=== PATIENT | female | born 1940 | race Caucasian/White ===

== ENCOUNTER 2016-12-12 10:30 | Outpatient (CLI) | payer MEDICARE, OTHER ==
[2016-12-12 11:15] LABS: eGFR (African) > 60; eGFR (Non-African) > 60
== END 2016-12-12 10:32 ==
LOC: LAB 10:30
PROVIDERS: ATTEND Family Medicine
DX: E55.9 Vitamin D deficiency, unspecified (principal); I10 Essential (primary) hypertension
CPT/HCPCS: 36415; 80053; 80061; 82306

== ENCOUNTER 2016-12-17 10:19 | Outpatient (CLI) | payer MEDICARE, OTHER | END 2016-12-17 10:20 | LOC: LAB 10:19 | PROVIDERS: ATTEND Family Medicine | DX: R73.9 Hyperglycemia, unspecified (principal) | CPT/HCPCS: 36415; 83036 ==

== ENCOUNTER 2017-03-11 10:46 | Outpatient (CLI) | payer MEDICARE, OTHER | END 2017-03-11 10:47 | LOC: LAB 10:46 | PROVIDERS: ATTEND Family Medicine | DX: R73.9 Hyperglycemia, unspecified (principal) | CPT/HCPCS: 36415; 83036 ==

== ENCOUNTER → 2017-06-20 | Outpatient (CLI) | payer MEDICARE, OTHER | LOC: LAB 11:24 | PROVIDERS: ATTEND Family Medicine | DX: E11.9 Type 2 diabetes mellitus without complications (principal) | CPT/HCPCS: 36415; 83036 ==

== ENCOUNTER 2017-09-23 09:51 | Outpatient (CLI) | payer MEDICARE, OTHER ==
[2017-09-23 11:01] LABS: eGFR (African) > 60; eGFR (Non-African) > 60
== END 2017-09-23 09:52 ==
LOC: LAB 09:51
PROVIDERS: ATTEND Family Medicine
DX: E11.9 Type 2 diabetes mellitus without complications (principal); I10 Essential (primary) hypertension
CPT/HCPCS: 36415; 80048; 83036

== ENCOUNTER 2017-10-10 08:47 | Day surgery (SDC) | payer MEDICARE, OTHER ==
[~2017-10-10 08:47] MED LIST: LACTATED RINGERS 1,000 ML IV.SOLN IV ONE; LIDOCAINE HCL/PF 2% 100 MG/5 ML VIAL IJ ONE; PROPOFOL 200 MG/20 ML VIAL IV ONE; SALINE FLUSH 10 ML DISP.SYRIN IVF ONE
--- NOTE | 2017-10-10 14:42 | Operative Note ---
SURGEON: Leif Whitman MD ANESTHESIA: MAC anesthesia. ESTIMATED BLOOD LOSS: None. COMPLICATIONS: None. PREOPERATIVE DIAGNOSIS: Screening colonoscopy. POSTOPERATIVE DIAGNOSIS: Colon polyps. PROCEDURE PERFORMED: Colonoscopy with polypectomy. INDICATIONS FOR THE PROCEDURE: This is a 76-year-old woman who presents for a screening colonoscopy. DESCRIPTION OF PROCEDURE: Patient was brought to the endoscopy suite and placed in the left lateral decubitus position. A rectal exam was performed which was normal. The colonoscope was inserted and passed to the cecum. The ileocecal valve and appendiceal orifice were identified. The prep was good. The colonoscope was retracted. There was a greater than 6-minute withdrawal time. On the ileocecal valve, there was approximately a 1 cm sessile polyp which was completely removed with a hot snare. In the rectum, there was a small sessile polyp removed with a cold snare. The colonoscope was removed. There were no other abnormalities. The patient tolerated the procedure well. FINDINGS: 1. A 1 cm sessile polyp on the ileocecal valve completely removed with a hot snare 2. A small sessile polyp in the rectum completely removed with a cold snare. DISPOSITION: We will await her pathology. cc: Dr. Rica GAMBINO
== END 2017-10-10 08:50 ==
LOC: OPSURG 08:47
PROVIDERS: ATTEND Colon & Rectal Surgery
DX: Z12.11 Encounter for screening for malignant neoplasm of colon (principal); K62.1 Rectal polyp; K63.5 Polyp of colon; D12.0 Benign neoplasm of cecum
CPT/HCPCS: J2001; J2704; J7120; 45385; S1016

== ENCOUNTER 2017-12-30 10:14 | Outpatient (CLI) | payer MEDICARE, OTHER ==
[2017-12-30 10:57] LABS: BASOPHILS % 0.4 (0.0-1.5); EOSINOPHILS % 1.6 % (0.0-6.8); MEAN CORPUSCULAR HEMOGLOBIN 25.4 pg (28.0-34.0); MEAN CORPUSCULAR VOLUME 79.5 fl (80.0-100.0); MONOCYTES % 4.1 % (0.0-11.0); NEUTROPHILS # 5.5 # k/uL (1.4-7.7)
[2017-12-30 11:08] LABS: eGFR (African) > 60; eGFR (Non-African) > 60
== END 2017-12-30 10:15 ==
LOC: LAB 10:14
PROVIDERS: ATTEND Family Medicine
DX: E11.9 Type 2 diabetes mellitus without complications (principal); R63.4 Abnormal weight loss
CPT/HCPCS: 36415; 80053; 83036; 84443; 85025

== ENCOUNTER 2018-01-01 09:22 | Outpatient (CLI) | payer MEDICARE, OTHER ==
--- NOTE | 2018-01-01 13:22 | Diagnostic Imaging Report ---
POOJA GREEN [facility] [address] [facility], [facility] [place], [place]. [address] Report Submission Date: Jan 01, 2018 11:09:56 AM TAXICAB DISPATCHER Patient Study Name: NAKUL SEYMOUR Date: Jan 01, 2018 9:51:46 AM TAXICAB DISPATCHER Modality Type: CT\SR Gender: F Description: CT ABD/PELVIS W/ CON : 42 Institution: [facility] Physician: POOJA GREEN Examination: CT Abdomen/pelvis History: CT A/P WITH CONTRAST, UNEXPLAINED WEIGHT LOSS X 1 YEAR, PT UNABLE TO RAISE LEFT ARM OUT OF F.O.V. (Hx) / UNEXPLAINED WEIGHT LOSS (DICOM Hx) Comparison exams: None available Technique: CT Abdomen/pelvis with IV protocol. Findings: Liver, spleen, pancreas, and kidneys are without gross irregularity. No abnormal enhancement. Surgical clips gallbladder fossa. Mild nodularity of the adrenal glands bilaterally. No suspicious renal calcifications or cortical irregularity. Uterus do not appear to be dilated in their course through the abdomen and pelvis. No central calcification. Abdominal aorta without aneurysm. Peripheral atherosclerotic disease. Cardiac silhouette is not enlarged. No pericardial effusion. Bowel unopacified limiting evaluation. No abnormal dilation. Stool within the large bowel limiting sensitivity. No mesenteric inflammatory changes or free fluid. Appendix is visualized and is without inflammatory changes. Scattered sigmoidal diverticula. No adjacent inflammation. Hiatal hernia. Osseous structures demonstrate degenerative changes. Curvature to the right. Lung bases demonstrate parenchymal scarring. No effusion. Impression: No abdominal mass or acute appearing inflammatory process. No suspicious renal calcifications or abnormal ureteric dilation. No abnormal bowel dilation or inflammation. Sigmoid diverticulosis. No evidence for acute diverticulitis. Large hiatal hernia. Electronically signed on Jan 01, 2018 11:09:56 AM TAXICAB DISPATCHER by: Luis Armando GAMBINO
--- NOTE | 2018-01-01 13:22 | Diagnostic Imaging Report ---
POOJA GREEN [facility] [address] [facility] [address] [place], [place]. [address] Report Submission Date: Jan 01, 2018 10:58:49 AM HOTEL MAINTENANCE ENGINEER Patient Study Name: NAKUL SEYMOUR Date: Jan 01, 2018 9:45:01 AM HOTEL MAINTENANCE ENGINEER Modality Type: CT\SR Gender: F Description: CT CHEST W/O : 41 Institution: [facility] Physician: POOJA GREEN Examination: CT chest History: CT A/P WITH CONTRAST, UNEXPLAINED WEIGHT LOSS X 1 YEAR, PT UNABLE TO RAISE LEFT ARM OUT OF F.O.V. (Hx) / UNEXPLAINED WEIGHT LOSS (DICOM Hx) Comparison exams: None available Technique: CT chest without contrast protocol Findings: Scattered parenchymal scarring. No consolidative process. 5 mm nodule right lower lung (image 69 of 137). No other suspicious nodules are spiculated lesions identified. Anterior mediastinum and carlitos are without gross mass or pathologic adenopathy: though sensitivity is reduced on a noncontrast exam. Thoracic aorta demonstrates peripheral atherosclerotic disease. No aneurysmal dilation. Cardiac silhouette not enlarged. No effusion. Lower neck structures and upper abdominal organs are without gross abnormality. Large hiatal hernia. Vertebral body ossific spurring. Curvature to the left. Impression: 5 mm noncalcified nodule right lower lung - not pathologic by CT criteria. Follow up recommended at 6 month intervals until 2 years worth of stability have been documented. Parenchymal scarring without focal consolidation or effusion. Large hiatal hernia. Electronically signed on Jan 01, 2018 10:58:49 AM HOTEL MAINTENANCE ENGINEER by: Luis Armando GAMBINO
== END 2018-01-01 09:23 ==
LOC: RAD 09:22
PROVIDERS: ATTEND Family Medicine
DX: R63.4 Abnormal weight loss (principal)
CPT/HCPCS: 71250; 74177; Q9967

== ENCOUNTER 2018-03-05 09:47 | Outpatient (CLI) | payer MEDICARE, OTHER ==
--- NOTE | 2018-03-05 18:02 | Diagnostic Imaging Report ---
POOJA GREEN [facility] [address] [facility] [address] [place], [place]. [address] Report Submission Date: March 05, 2018 11:32:18 AM CDT Patient Study Name: NAKUL SEYMOUR Date: March 05, 2018 9:59:00 AM CDT Modality Type: CT\SR Gender: F Description: CT CHEST W/O CONTRAST : 41 Institution: [facility] Physician: POOJA GREEN Examination: CT chest History: FOLLOW UP LUNG NODULE SEEN ON 01/01/2018 (Hx) Comparison exams: CT chest dated 01 January 2018 the wall the Technique: CT chest without contrast protocol Findings: Scattered parenchymal scarring. No consolidative process. 5.1 mm nodule right lower lung (image 37 of 64): unchanged to prior examination. No other suspicious nodules or spiculated lesions identified. Anterior mediastinum and carlitos are without gross mass or pathologic adenopathy: though sensitivity is reduced on a noncontrast exam. Thoracic aorta demonstrates peripheral atherosclerotic disease. No aneurysmal dilation. Cardiac silhouette not enlarged. No effusion. Lower neck structures and upper abdominal organs are without gross abnormality. Large hiatal hernia. Vertebral body ossific spurring. Thoracolumbar curvature to the left. Impression: Stable 5 mm noncalcified nodule right lower lung - not pathologic by CT criteria. Continued follow up recommended at 6 month intervals until 2 years of stability have been documented. Parenchymal scarring without focal consolidation or effusion. Large hiatal hernia. Electronically signed on March 05, 2018 11:32:18 AM CDT by: Luis Armando GAMBINO
== END 2018-03-05 09:50 ==
LOC: RAD 09:47
PROVIDERS: ATTEND Family Medicine
DX: R91.1 Solitary pulmonary nodule (principal)
CPT/HCPCS: 71250

== ENCOUNTER 2018-04-24 09:11 | Outpatient (CLI) | payer MEDICARE, OTHER | END 2018-04-24 09:30 | LOC: LAB 09:11 | PROVIDERS: ATTEND Family Medicine | DX: R73.9 Hyperglycemia, unspecified (principal) | CPT/HCPCS: 36415; 80061; 83036 ==

== ENCOUNTER 2018-10-02 13:49 | Outpatient (CLI) | payer MEDICARE, OTHER ==
--- NOTE | 2018-10-03 03:46 | Diagnostic Imaging Report ---
POOJA GREEN [facility] [address] [facility] [address] [place], [place]. [address] Report Submission Date: Oct 02, 2018 3:16:10 PM INSIDE TESTER Patient Study Name: NAKUL SEYMOUR Date: Oct 02, 2018 2:05:10 PM INSIDE TESTER Modality Type: CT\SR Gender: F Description: CT CHEST W/O CONTRAST : 41 Institution: [facility] Physician: POOJA GREEN CT chest without contrast History: Follow up nodule Technique: Helically acquired images were obtained through the chest without IV contrast and comparison made with prior CT examinations dating back to January 01, 2018. Findings: There is an unchanged hiatal hernia. Atherosclerotic calcifications of the aortic arch are present. Calcified granulomata of the right hilum are present. There has been a cholecystectomy. There is no mediastinal or hilar lymphadenopathy. There is no pericardial or pleural effusion. The previously described right lower lobe nodule has not changed back to December 2017 and actually measures closer to 7 mm in greatest dimension. There is evidence for old granulomatous disease elsewhere and this nodule may represent a noncalcified granuloma. There is multilevel degenerative disc disease at the mid and lower thoracic spine. Impression: The previously noted right lower lobe nodule has not changed back to December 2017 and actually measures closer to 7 mm in greatest dimension. Per 2017 Fleischner criteria, an additional follow-up CT in 18 months time would be recommended to document continued stability. Old granulomatous disease. Atherosclerosis of the thoracic aortic arch. Unchanged hiatal hernia. Electronically signed on Oct 02, 2018 3:16:10 PM INSIDE TESTER by: Nan GAMBINO
== END 2018-10-02 13:50 ==
LOC: RAD 13:49
PROVIDERS: ATTEND Family Medicine
DX: E11.9 Type 2 diabetes mellitus without complications (principal); R91.1 Solitary pulmonary nodule; K44.9 Diaphragmatic hernia without obstruction or gangrene; I70.0 Atherosclerosis of aorta
CPT/HCPCS: 36415; 71250; 83036

== ENCOUNTER 2018-12-15 10:19 | Outpatient (CLI) | payer MEDICARE, OTHER ==
--- NOTE | 2018-12-15 13:45 | Diagnostic Imaging Report ---
POOJA GREEN [facility] [address] [facility] [address] [address] Report Submission Date: Dec 15, 2018 12:51:50 PM SERVICE OPERATOR Patient Study Name: NAKUL SEYMOUR Date: Dec 15, 2018 10:30:07 AM SERVICE OPERATOR Modality Type: DX Gender: F Description: LT HIP 2VIEW COMPLETE : 42 Institution: [facility] Physician: POOJA GREEN Examination: Plain film left hip History: LEFT HIP PAIN X 2 WEEKS, NKI, NO PREVIOUS INJURY OR SURGERY ON LEFT LEG. Comparison exams: None provided Findings: 2 views of the left hip demonstrate normal cortical margins. No fracture no dislocation. No soft tissue abnormality. Impression: No acute osseous abnormality. Electronically signed on Dec 15, 2018 12:51:50 PM SERVICE OPERATOR by: Luis Armando GAMBINO
== END 2018-12-15 10:21 ==
LOC: RAD 10:19
PROVIDERS: ATTEND Family Medicine
DX: M25.552 Pain in left hip (principal)

== ENCOUNTER 2019-10-12 10:35 | Outpatient (CLI) | payer MEDICARE, OTHER ==
[2019-10-12 11:14] LABS: A1C 5.6 % (<5.7)
[2019-10-12 11:29] LABS: HDL 47 mg/dL (>40); eGFR (Non-African) > 60
== END 2019-10-12 10:40 ==
LOC: LAB 10:35
PROVIDERS: ATTEND Family Medicine
DX: E11.9 Type 2 diabetes mellitus without complications (principal)
CPT/HCPCS: 36415; 80053; 80061; 83036